=== PATIENT | female | born 1950 | race Caucasian/White ===

== ENCOUNTER 2020-03-03 16:49 | Inpatient (IN) ==
[2020-03-03] MEDS ORDERED: Cholestyramine 4 GM POWD.PACK PO PRN (17:56)
[2020-03-03] MEDS ORDERED: Apixaban 5 MG TABLET PO SCH (21:00)
[2020-03-04] MEDS: *HR* OxyCODONE/APAP 5/325 TABLET PO PRN ×3 (00:56→20:29)
[2020-03-04] MEDS ORDERED: Doxycycline 100 MG CAPSULE PO SCH (06:00)
[2020-03-04 06:46] LABS: Basophils % 0.2 %; Eosinophils # 0.2 K/mcL (0.0-0.6); Eosinophils % 1.7 %; Hematocrit 26.6 % (35.3-44.9); Hemoglobin 8.4 g/dL (11.5-15.4); Immature Granulocytes % 0.6 % (0-4); Lymphocytes # 1.7 K/mcL (0.6-4.6); Lymphocytes % 12.4 %; Mean Corpuscular HGB Conc 31.6 g/dL (31.6-35.5); Mean Corpuscular Hemoglobin 29.3 pg (28.0-33.3); Mean Corpuscular Volume 92.7 fL (83.0-100.0); Mean Platelet Volume 9.7 fL (9.4-12.4); Monocytes # 1.7 K/mcL (0.0-1.3); Monocytes % 12.4 %; Platelet Count 248 K/mcL (140-400); Red Blood Count 2.87 M/mcL (3.82-4.97); Red Cell Distribution Width 14.7 % (11.5-14.5); Segmented Neutrophils % 72.7 %; White Blood Count 13.8 K/mcL (4.3-11.1)
[2020-03-04 07:15] LABS: Calcium 8.5 mg/dL (8.6-10.3); Potassium 4.6 mEq/L (3.5-5.1)
[2020-03-04] MEDS: lisinopriL 20 MG TABLET PO SCH (08:36)
[2020-03-04] MEDS: Cyanocobalamin (B-12) 1,000 MCG TABLET PO SCH (08:36)
[2020-03-04] MEDS: Loratadine 10 MG TABLET PO SCH (08:36)
[2020-03-04] MEDS: Metoprolol XL (24 HR) Succ 50 MG TAB.ER.24H PO SCH (08:36)
[2020-03-04] MEDS: Furosemide 20 MG TABLET PO SCH (08:36)
[2020-03-04] MEDS: Multivit/Ca/Min/Fe/FA 1 TAB TABLET PO SCH (08:36)
[2020-03-04] MEDS: Folic Acid 1 MG TABLET PO SCH (08:37)
[2020-03-04] MEDS: hydroCHLOROthiazide 25 MG TABLET PO SCH (08:37)
[2020-03-04] MEDS: hydrALAZINE 25 MG TABLET PO SCH ×3 (08:40→20:30)
[2020-03-04] MEDS: Tiotropium 10 INH DOSE IH SCH (08:49)
[2020-03-04] MEDS ORDERED: Apixaban 5 MG TABLET PO SCH (09:00)
[2020-03-04] MEDS ORDERED: Budesonide/Formoterol 80/4.5 1 PUFF INH IH SCH (10:00)
[2020-03-04] MEDS: Clindamycin 600 MG/50 ML 600 MG/50 ML IV.SOLN IVPB SCH ×2 (17:06→23:19)
[2020-03-04] MEDS: Apixaban 5 MG TABLET PO SCH (20:30)
[2020-03-04] MEDS: Budesonide/Formoterol 80/4.5 1 PUFF INH IH SCH (22:43)
[2020-03-05] MEDS: *HR* OxyCODONE/APAP 5/325 TABLET PO PRN ×3 (03:48→21:04)
[2020-03-05] MEDS: Clindamycin 600 MG/50 ML 600 MG/50 ML IV.SOLN IVPB SCH ×2 (07:55→15:54)
[2020-03-05] MEDS: hydroCHLOROthiazide 25 MG TABLET PO SCH (07:57)
[2020-03-05] MEDS: Furosemide 20 MG TABLET PO SCH (07:58)
[2020-03-05] MEDS: Loratadine 10 MG TABLET PO SCH (07:58)
[2020-03-05] MEDS: Multivit/Ca/Min/Fe/FA 1 TAB TABLET PO SCH (07:58)
[2020-03-05] MEDS: Cyanocobalamin (B-12) 1,000 MCG TABLET PO SCH (07:58)
[2020-03-05] MEDS: Folic Acid 1 MG TABLET PO SCH (08:01)
[2020-03-05] MEDS: lisinopriL 20 MG TABLET PO SCH (08:02)
[2020-03-05] MEDS: Metoprolol XL (24 HR) Succ 50 MG TAB.ER.24H PO SCH (08:02)
[2020-03-05] MEDS: Apixaban 5 MG TABLET PO SCH ×2 (08:02→21:04)
[2020-03-05] MEDS: hydrALAZINE 25 MG TABLET PO SCH (08:02)
[2020-03-05] MEDS: Budesonide/Formoterol 80/4.5 1 PUFF INH IH SCH ×2 (08:05→22:06)
[2020-03-05] MEDS: Tiotropium 10 INH DOSE IH SCH (08:05)
[2020-03-05] MEDS ORDERED: Ondansetron 4 MG/2 ML VIAL IVP PRN (09:01)
[2020-03-05] MEDS ORDERED: Ondansetron 4 MG/2 ML VIAL ONE (09:03)
[2020-03-05] MEDS: 0.9 % Sodium Chloride 1,000 ML IVC SCH ×2 (09:08→21:04)
[2020-03-05 09:37] LABS: Basophils # 0.1 K/mcL (0.0-0.2); Basophils % 0.4 %; Eosinophils # 0.5 K/mcL (0.0-0.6); Eosinophils % 2.9 %; Hematocrit 25.2 % (35.3-44.9); Immature Granulocytes % 0.7 % (0-4); Lymphocytes % 18.3 %; Mean Corpuscular HGB Conc 31.7 g/dL (31.6-35.5); Mean Corpuscular Hemoglobin 29.2 pg (28.0-33.3); Mean Platelet Volume 9.6 fL (9.4-12.4); Monocytes # 2.3 K/mcL (0.0-1.3); Monocytes % 13.8 %; Neutrophils # 10.5 K/mcL (1.6-8.9); Platelet Count 258 K/mcL (140-400); Red Blood Count 2.74 M/mcL (3.82-4.97); Red Cell Distribution Width 14.8 % (11.5-14.5); Segmented Neutrophils % 63.9 %; White Blood Count 16.4 K/mcL (4.3-11.1)
[2020-03-05 10:25] LABS: Calcium 8.3 mg/dL (8.6-10.3); Potassium 4.7 mEq/L (3.5-5.1)
[2020-03-06] MEDS: Clindamycin 600 MG/50 ML 600 MG/50 ML IV.SOLN IVPB SCH ×3 (00:03→17:10)
[2020-03-06] MEDS: *HR* OxyCODONE/APAP 5/325 TABLET PO PRN (05:49)
[2020-03-06 07:23] LABS: Basophils % 0.3 %; Eosinophils # 0.5 K/mcL (0.0-0.6); Eosinophils % 3.6 %; Hematocrit 23.7 % (35.3-44.9); Hemoglobin 7.6 g/dL (11.5-15.4); Immature Granulocytes % 0.7 % (0-4); Lymphocytes # 1.3 K/mcL (0.6-4.6); Lymphocytes % 9.6 %; Mean Corpuscular HGB Conc 32.1 g/dL (31.6-35.5); Mean Corpuscular Hemoglobin 29.5 pg (28.0-33.3); Mean Corpuscular Volume 91.9 fL (83.0-100.0); Mean Platelet Volume 9.7 fL (9.4-12.4); Monocytes # 1.6 K/mcL (0.0-1.3); Monocytes % 12.1 %; Neutrophils # 9.7 K/mcL (1.6-8.9); Platelet Count 247 K/mcL (140-400); Red Blood Count 2.58 M/mcL (3.82-4.97); Segmented Neutrophils % 73.7 %; White Blood Count 13.2 K/mcL (4.3-11.1)
[2020-03-06 08:01] LABS: Calcium 8.1 mg/dL (8.6-10.3); Potassium 4.6 mEq/L (3.5-5.1)
[2020-03-06] MEDS: Tiotropium 10 INH DOSE IH SCH ×2 (08:21→09:24)
[2020-03-06] MEDS: Budesonide/Formoterol 80/4.5 1 PUFF INH IH SCH ×2 (08:21→21:44)
[2020-03-06] MEDS: Cyanocobalamin (B-12) 1,000 MCG TABLET PO SCH (08:57)
[2020-03-06] MEDS: Folic Acid 1 MG TABLET PO SCH (08:57)
[2020-03-06] MEDS: Loratadine 10 MG TABLET PO SCH (08:57)
[2020-03-06] MEDS: Furosemide 40 MG TABLET PO SCH (08:57)
[2020-03-06] MEDS: Apixaban 5 MG TABLET PO SCH ×2 (08:57→21:41)
[2020-03-06] MEDS: Multivit/Ca/Min/Fe/FA 1 TAB TABLET PO SCH (08:57)
[2020-03-06] MEDS ORDERED: 0.9 % Sodium Chloride 1,000 ML IVC SCH (14:45)
[2020-03-06] MEDS: polyethylene glycoL 3350 17 GM POWD.PACK PO PRN (15:03)
[2020-03-06] MEDS: *HR* OxyCODONE/APAP 7.5/325 TABLET PO PRN ×2 (15:03→21:41)
[2020-03-06] MEDS: hydrALAZINE 25 MG TABLET PO SCH (17:01)
[2020-03-07] MEDS: Clindamycin 600 MG/50 ML 600 MG/50 ML IV.SOLN IVPB SCH ×3 (00:31→16:09)
[2020-03-07 06:52] LABS: Basophils % 0.3 %; Eosinophils # 0.5 K/mcL (0.0-0.6); Eosinophils % 4.3 %; Hematocrit 23.3 % (35.3-44.9); Hemoglobin 7.4 g/dL (11.5-15.4); Immature Granulocytes % 0.8 % (0-4); Lymphocytes # 1.6 K/mcL (0.6-4.6); Lymphocytes % 13.2 %; Mean Corpuscular HGB Conc 31.8 g/dL (31.6-35.5); Mean Corpuscular Hemoglobin 29.2 pg (28.0-33.3); Mean Corpuscular Volume 92.1 fL (83.0-100.0); Mean Platelet Volume 9.8 fL (9.4-12.4); Monocytes # 1.5 K/mcL (0.0-1.3); Monocytes % 12.7 %; Neutrophils # 8.1 K/mcL (1.6-8.9); Platelet Count 264 K/mcL (140-400); Red Blood Count 2.53 M/mcL (3.82-4.97); Red Cell Distribution Width 15.1 % (11.5-14.5); Segmented Neutrophils % 68.7 %; White Blood Count 11.8 K/mcL (4.3-11.1)
[2020-03-07 07:19] LABS: Calcium 8.4 mg/dL (8.6-10.3); Potassium 4.6 mEq/L (3.5-5.1)
[2020-03-07] MEDS: Loratadine 10 MG TABLET PO SCH (08:27)
[2020-03-07] MEDS: Apixaban 5 MG TABLET PO SCH ×2 (08:27→21:32)
[2020-03-07] MEDS: Cyanocobalamin (B-12) 1,000 MCG TABLET PO SCH (08:27)
[2020-03-07] MEDS: Folic Acid 1 MG TABLET PO SCH (08:28)
[2020-03-07] MEDS: Multivit/Ca/Min/Fe/FA 1 TAB TABLET PO SCH (08:28)
[2020-03-07] MEDS: *HR* OxyCODONE/APAP 7.5/325 TABLET PO PRN ×3 (08:45→22:15)
[2020-03-07] MEDS: Tiotropium 10 INH DOSE IH SCH (11:10)
[2020-03-07] MEDS: Budesonide/Formoterol 80/4.5 1 PUFF INH IH SCH ×2 (11:11→21:34)
[2020-03-07] MEDS: Metoprolol XL (24 HR) Succ 50 MG TAB.ER.24H PO SCH (12:16)
[2020-03-07] MEDS: Sennosides/Docusate Sodium TABLET PO PRN (16:03)
[2020-03-07] MEDS: hydrALAZINE 25 MG TABLET PO SCH ×2 (21:30→21:31)
[2020-03-08] MEDS: Clindamycin 600 MG/50 ML 600 MG/50 ML IV.SOLN IVPB SCH ×3 (01:03→15:38)
[2020-03-08] MEDS: Sennosides/Docusate Sodium TABLET PO PRN (04:52)
[2020-03-08] MEDS: *HR* OxyCODONE/APAP 7.5/325 TABLET PO PRN ×3 (04:53→19:42)
[2020-03-08] MEDS: polyethylene glycoL 3350 17 GM POWD.PACK PO PRN (04:54)
[2020-03-08 07:31] LABS: Hematocrit 23.7 % (35.3-44.9); Hemoglobin 7.5 g/dL (11.5-15.4); Mean Corpuscular HGB Conc 31.6 g/dL (31.6-35.5); Mean Corpuscular Hemoglobin 29.3 pg (28.0-33.3); Mean Corpuscular Volume 92.6 fL (83.0-100.0); Mean Platelet Volume 9.7 fL (9.4-12.4); Platelet Count 303 K/mcL (140-400); Red Blood Count 2.56 M/mcL (3.82-4.97); Red Cell Distribution Width 14.9 % (11.5-14.5)
[2020-03-08 07:50] LABS: Calcium 8.5 mg/dL (8.6-10.3); Potassium 4.1 mEq/L (3.5-5.1)
[2020-03-08] MEDS: Apixaban 5 MG TABLET PO SCH ×2 (08:25→21:58)
[2020-03-08] MEDS: Cyanocobalamin (B-12) 1,000 MCG TABLET PO SCH (08:25)
[2020-03-08] MEDS: lisinopriL 20 MG TABLET PO SCH (08:25)
[2020-03-08] MEDS: Multivit/Ca/Min/Fe/FA 1 TAB TABLET PO SCH (08:25)
[2020-03-08] MEDS: Loratadine 10 MG TABLET PO SCH (08:25)
[2020-03-08] MEDS: Folic Acid 1 MG TABLET PO SCH (08:25)
[2020-03-08] MEDS: Furosemide 40 MG TABLET PO SCH (08:25)
[2020-03-08] MEDS: Metoprolol XL (24 HR) Succ 50 MG TAB.ER.24H PO SCH (08:25)
[2020-03-08] MEDS: hydrALAZINE 25 MG TABLET PO SCH ×3 (08:25→21:50)
[2020-03-08] MEDS: Tiotropium 10 INH DOSE IH SCH (11:19)
[2020-03-08] MEDS: Budesonide/Formoterol 80/4.5 1 PUFF INH IH SCH ×2 (11:19→22:00)
[2020-03-09] MEDS: Clindamycin 600 MG/50 ML 600 MG/50 ML IV.SOLN IVPB SCH ×2 (01:40→08:57)
[2020-03-09] MEDS: *HR* OxyCODONE/APAP 7.5/325 TABLET PO PRN ×3 (05:30→20:16)
[2020-03-09] MEDS: Sennosides/Docusate Sodium TABLET PO PRN ×2 (05:30→20:14)
[2020-03-09] MEDS: polyethylene glycoL 3350 17 GM POWD.PACK PO PRN (05:30)
[2020-03-09] MEDS: hydrALAZINE 25 MG TABLET PO SCH ×3 (08:56→20:15)
[2020-03-09] MEDS: Loratadine 10 MG TABLET PO SCH (08:56)
[2020-03-09] MEDS: Multivit/Ca/Min/Fe/FA 1 TAB TABLET PO SCH (08:56)
[2020-03-09] MEDS: Folic Acid 1 MG TABLET PO SCH (08:56)
[2020-03-09] MEDS: Metoprolol XL (24 HR) Succ 50 MG TAB.ER.24H PO SCH (08:57)
[2020-03-09] MEDS: Cyanocobalamin (B-12) 1,000 MCG TABLET PO SCH (08:57)
[2020-03-09] MEDS: Apixaban 5 MG TABLET PO SCH ×2 (08:57→20:15)
[2020-03-09] MEDS: Furosemide 40 MG TABLET PO SCH (08:57)
[2020-03-09] MEDS: Budesonide/Formoterol 80/4.5 1 PUFF INH IH SCH ×2 (09:48→21:20)
[2020-03-09] MEDS: Tiotropium 10 INH DOSE IH SCH (09:49)
[2020-03-09] MEDS: Doxycycline 100 MG CAPSULE PO SCH (18:23)
[2020-03-10] MEDS: Doxycycline 100 MG CAPSULE PO SCH ×2 (06:07→16:30)
[2020-03-10] MEDS: Tiotropium 10 INH DOSE IH SCH (08:52)
[2020-03-10] MEDS: Budesonide/Formoterol 80/4.5 1 PUFF INH IH SCH ×2 (08:53→21:11)
[2020-03-10] MEDS: Sennosides/Docusate Sodium TABLET PO PRN ×2 (09:01→20:41)
[2020-03-10] MEDS: polyethylene glycoL 3350 17 GM POWD.PACK PO PRN (09:01)
[2020-03-10] MEDS: Metoprolol XL (24 HR) Succ 50 MG TAB.ER.24H PO SCH (09:03)
[2020-03-10] MEDS: Furosemide 40 MG TABLET PO SCH (09:03)
[2020-03-10] MEDS: Cyanocobalamin (B-12) 1,000 MCG TABLET PO SCH (09:03)
[2020-03-10] MEDS: Folic Acid 1 MG TABLET PO SCH (09:03)
[2020-03-10] MEDS: hydrALAZINE 25 MG TABLET PO SCH ×3 (09:03→20:42)
[2020-03-10] MEDS: Multivit/Ca/Min/Fe/FA 1 TAB TABLET PO SCH (09:03)
[2020-03-10] MEDS: Loratadine 10 MG TABLET PO SCH (09:03)
[2020-03-10] MEDS: Apixaban 5 MG TABLET PO SCH ×2 (09:03→20:41)
[2020-03-10] MEDS: *HR* OxyCODONE/APAP 7.5/325 TABLET PO PRN ×3 (09:03→22:29)
[2020-03-11] MEDS: Doxycycline 100 MG CAPSULE PO SCH ×2 (06:00→17:31)
[2020-03-11 06:52] LABS: Hematocrit 25.3 % (35.3-44.9); Hemoglobin 7.8 g/dL (11.5-15.4); Mean Corpuscular HGB Conc 30.8 g/dL (31.6-35.5); Mean Corpuscular Hemoglobin 29.1 pg (28.0-33.3); Mean Corpuscular Volume 94.4 fL (83.0-100.0); Mean Platelet Volume 9.8 fL (9.4-12.4); Platelet Count 393 K/mcL (140-400); Red Blood Count 2.68 M/mcL (3.82-4.97); Red Cell Distribution Width 15.5 % (11.5-14.5)
[2020-03-11 07:15] LABS: Calcium 8.5 mg/dL (8.6-10.3); Potassium 4.5 mEq/L (3.5-5.1)
[2020-03-11] MEDS: Apixaban 5 MG TABLET PO SCH ×2 (08:25→21:38)
[2020-03-11] MEDS: Multivit/Ca/Min/Fe/FA 1 TAB TABLET PO SCH (08:25)
[2020-03-11] MEDS: hydrALAZINE 25 MG TABLET PO SCH ×3 (08:26→21:38)
[2020-03-11] MEDS: Furosemide 40 MG TABLET PO SCH (08:26)
[2020-03-11] MEDS: Folic Acid 1 MG TABLET PO SCH (08:26)
[2020-03-11] MEDS: Metoprolol XL (24 HR) Succ 50 MG TAB.ER.24H PO SCH (08:26)
[2020-03-11] MEDS: Loratadine 10 MG TABLET PO SCH (08:26)
[2020-03-11] MEDS: *HR* OxyCODONE/APAP 7.5/325 TABLET PO PRN ×3 (08:26→21:38)
[2020-03-11] MEDS: Cyanocobalamin (B-12) 1,000 MCG TABLET PO SCH (08:26)
[2020-03-11] MEDS ORDERED: Furosemide 20 MG/2 ML VIAL IVP ONE (08:33)
[2020-03-11] MEDS: Furosemide 20 MG/2 ML VIAL IVP ONE ×2 (10:43→10:52)
[2020-03-11] MEDS ORDERED: Furosemide 20 MG TABLET PO ONE (10:57)
[2020-03-11] MEDS: Tiotropium 10 INH DOSE IH SCH (11:21)
[2020-03-11] MEDS: Budesonide/Formoterol 80/4.5 1 PUFF INH IH SCH ×2 (11:22→21:44)
[2020-03-12] MEDS: hydrALAZINE 25 MG TABLET PO SCH ×3 (09:20→21:02)
[2020-03-12] MEDS: Cyanocobalamin (B-12) 1,000 MCG TABLET PO SCH (09:20)
[2020-03-12] MEDS: polyethylene glycoL 3350 17 GM POWD.PACK PO PRN (09:20)
[2020-03-12] MEDS: Loratadine 10 MG TABLET PO SCH (09:20)
[2020-03-12] MEDS: Multivit/Ca/Min/Fe/FA 1 TAB TABLET PO SCH (09:20)
[2020-03-12] MEDS: Apixaban 5 MG TABLET PO SCH ×2 (09:20→21:02)
[2020-03-12] MEDS: Sennosides/Docusate Sodium TABLET PO PRN (09:20)
[2020-03-12] MEDS: *HR* OxyCODONE/APAP 7.5/325 TABLET PO PRN ×3 (09:20→22:19)
[2020-03-12] MEDS: Furosemide 40 MG TABLET PO SCH (09:21)
[2020-03-12] MEDS: Folic Acid 1 MG TABLET PO SCH (09:21)
[2020-03-12] MEDS: Metoprolol XL (24 HR) Succ 50 MG TAB.ER.24H PO SCH (09:21)
[2020-03-12] MEDS: Tiotropium 10 INH DOSE IH SCH (10:47)
[2020-03-12] MEDS: Budesonide/Formoterol 80/4.5 1 PUFF INH IH SCH ×2 (10:53→21:05)
[2020-03-13] MEDS: *HR* OxyCODONE/APAP 7.5/325 TABLET PO PRN ×3 (06:12→21:02)
[2020-03-13 07:14] LABS: Hematocrit 25.5 % (35.3-44.9); Mean Corpuscular HGB Conc 31.4 g/dL (31.6-35.5); Mean Corpuscular Hemoglobin 29.2 pg (28.0-33.3); Mean Corpuscular Volume 93.1 fL (83.0-100.0); Mean Platelet Volume 9.1 fL (9.4-12.4); Platelet Count 403 K/mcL (140-400); Red Blood Count 2.74 M/mcL (3.82-4.97); Red Cell Distribution Width 15.4 % (11.5-14.5); White Blood Count 10.8 K/mcL (4.3-11.1)
[2020-03-13 07:28] LABS: Calcium 8.6 mg/dL (8.6-10.3)
[2020-03-13] MEDS: Furosemide 40 MG TABLET PO SCH (08:00)
[2020-03-13] MEDS: Multivit/Ca/Min/Fe/FA 1 TAB TABLET PO SCH (08:00)
[2020-03-13] MEDS: Metoprolol XL (24 HR) Succ 50 MG TAB.ER.24H PO SCH (08:00)
[2020-03-13] MEDS: Folic Acid 1 MG TABLET PO SCH (08:00)
[2020-03-13] MEDS: Apixaban 5 MG TABLET PO SCH ×2 (08:01→20:59)
[2020-03-13] MEDS: Cyanocobalamin (B-12) 1,000 MCG TABLET PO SCH (08:01)
[2020-03-13] MEDS: Loratadine 10 MG TABLET PO SCH (08:01)
[2020-03-13] MEDS: hydrALAZINE 25 MG TABLET PO SCH ×3 (08:01→20:59)
[2020-03-13] MEDS ORDERED: Ondansetron ODT 4 MG TAB.RAPDIS SL PRN (08:51)
[2020-03-13] MEDS: Tiotropium 10 INH DOSE IH SCH (11:06)
[2020-03-13] MEDS: Budesonide/Formoterol 80/4.5 1 PUFF INH IH SCH ×2 (11:07→20:48)
[2020-03-13] MEDS ORDERED: Furosemide 40 MG TABLET PO ONE (15:29)
[2020-03-14] MEDS: Apixaban 5 MG TABLET PO SCH ×2 (07:35→22:53)
[2020-03-14] MEDS: Cyanocobalamin (B-12) 1,000 MCG TABLET PO SCH (07:35)
[2020-03-14] MEDS: Folic Acid 1 MG TABLET PO SCH (07:35)
[2020-03-14] MEDS: hydrALAZINE 25 MG TABLET PO SCH ×3 (07:35→22:53)
[2020-03-14] MEDS: Furosemide 40 MG TABLET PO SCH (07:35)
[2020-03-14] MEDS: Metoprolol XL (24 HR) Succ 50 MG TAB.ER.24H PO SCH (07:35)
[2020-03-14] MEDS: Multivit/Ca/Min/Fe/FA 1 TAB TABLET PO SCH (07:35)
[2020-03-14] MEDS: Loratadine 10 MG TABLET PO SCH (07:35)
[2020-03-14] MEDS: *HR* OxyCODONE/APAP 7.5/325 TABLET PO PRN ×2 (07:41→22:54)
[2020-03-14] MEDS: Tiotropium 10 INH DOSE IH SCH (08:33)
[2020-03-14] MEDS: Budesonide/Formoterol 80/4.5 1 PUFF INH IH SCH ×2 (08:33→22:54)
[2020-03-14] MEDS ORDERED: Furosemide 40 MG TABLET PO ONE (15:19)
[2020-03-15] MEDS: Tiotropium 10 INH DOSE IH SCH (08:40)
[2020-03-15] MEDS: Budesonide/Formoterol 80/4.5 1 PUFF INH IH SCH ×2 (08:41→21:56)
[2020-03-15] MEDS: Furosemide 40 MG TABLET PO SCH (10:40)
[2020-03-15] MEDS: Loratadine 10 MG TABLET PO SCH (10:41)
[2020-03-15] MEDS: Multivit/Ca/Min/Fe/FA 1 TAB TABLET PO SCH (10:41)
[2020-03-15] MEDS: Cyanocobalamin (B-12) 1,000 MCG TABLET PO SCH (10:41)
[2020-03-15] MEDS: hydrALAZINE 25 MG TABLET PO SCH ×3 (10:41→20:37)
[2020-03-15] MEDS: Metoprolol XL (24 HR) Succ 50 MG TAB.ER.24H PO SCH (10:41)
[2020-03-15] MEDS: Folic Acid 1 MG TABLET PO SCH (10:41)
[2020-03-15] MEDS: Apixaban 5 MG TABLET PO SCH ×2 (10:41→20:37)
[2020-03-15] MEDS: *HR* OxyCODONE/APAP 7.5/325 TABLET PO PRN (20:44)
[2020-03-16 07:50] VITALS: BP 113/65
[2020-03-16] MEDS: hydrALAZINE 25 MG TABLET PO SCH (08:41)
[2020-03-16] MEDS: Metoprolol XL (24 HR) Succ 50 MG TAB.ER.24H PO SCH (08:41)
[2020-03-16] MEDS: Multivit/Ca/Min/Fe/FA 1 TAB TABLET PO SCH (08:41)
[2020-03-16] MEDS: Apixaban 5 MG TABLET PO SCH (08:41)
[2020-03-16] MEDS: Loratadine 10 MG TABLET PO SCH (08:42)
[2020-03-16] MEDS: Folic Acid 1 MG TABLET PO SCH (08:42)
[2020-03-16] MEDS: Furosemide 40 MG TABLET PO SCH (08:43)
[2020-03-16] MEDS: Cyanocobalamin (B-12) 1,000 MCG TABLET PO SCH (08:44)
[2020-03-16] MEDS: Budesonide/Formoterol 80/4.5 1 PUFF INH IH SCH (11:16)
[2020-03-16] MEDS: Tiotropium 10 INH DOSE IH SCH (11:16)
== END 2020-03-16 11:35 | disposition home health service (06) | DRG 949 ==
LOC: INPPIK 23:44
PROVIDERS: ADMIT Family Medicine; ATTEND Family Medicine